=== PATIENT | female | born 1990 | race Two or more races ===

== ENCOUNTER 2025-03-07 06:58 | Emergency (ER) | payer OTHER ==
[~2025-03-07] VITALS: Ht 162.6 cm; Wt 94.8 kg
[2025-03-07 07:41] VITALS: BP 138/86; O2SAT 100
[2025-03-07] MEDS ORDERED: FAMOtidine 10 MG/ML (4ML VIAL) IV ONE (08:30)
[2025-03-07] MEDS ORDERED: METHYLPREDNISOLONE SOD SUCC 125 MG VIAL IV ONE (08:30)
[2025-03-07] MEDS ORDERED: DIPHENHYDRAMINE HCL 50 MG/ML VIAL 1ML IV ONE (08:30)
== END 2025-03-07 10:12 | disposition home or self-care (01) ==
LOC: ER 06:59
DX: T78.40XA Allergy, unspecified, initial encounter (principal); R21 Rash and other nonspecific skin eruption; Z88.0 Allergy status to penicillin